=== PATIENT | female | born 1995 | race Caucasian/White ===

== ENCOUNTER 2018-07-14 14:17 | Emergency (ER) | payer BC ==
[2018-07-14 15:41] LABS: Pregnancy Test - Urine (BHCG) Negative (Negative); Pregu Control Background? CLEAR/WHITE (CLR/WHITE); Pregu Control Bar Appear? YES (CONTROL BAR); Specific Gravity 1.021 (1.002-1.036)
--- NOTE | 2018-07-14 16:25 | RAD ---
CHEST PA AND LATERAL: History: 22-year-old female with history of cough. FINDINGS: There is some very minimal patchy alveolar parenchymal changes in the right infrahilar region and lef t infrahilar regions without evidence for confluence. This is worrisome for atypical pneumonia or pne umonitis. The upper lung zones are unremarkable. No pleural effusion. Heart size is normal. IMPRESSION: Minimal patchy parenchymal changes in the infrahilar regions bilaterally, evidence for atypical pneum onia or pneumonitis without confluent lobar pneumonia or other acute process. POS: [facility]
== END 2018-07-14 16:16 | disposition home or self-care (01) ==
LOC: ERS 14:17
DX: J18.9 Pneumonia, unspecified organism (principal); F17.210 Nicotine dependence, cigarettes, uncomplicated; Z79.899 Other long term (current) drug therapy
CPT/HCPCS: 71046; 81025